=== PATIENT | male | born 1950 | race Caucasian/White ===

== ENCOUNTER 2018-03-18 06:04 | Day surgery (SDC) | payer MEDICARE, BC ==
[2018-03-18] MEDS ORDERED: Dextrose 5%-Lactated Ringers 1,000 ML IV SCH (06:30)
[2018-03-18] MEDS ORDERED: Midazolam 1 MG/ML 2 ML SDV ONE (07:04)
[2018-03-18] MEDS ORDERED: fentaNYL 100 MCG/2 ML SDV ONE (07:04)
[2018-03-18] MEDS ORDERED: Propofol 200 MG/20 ML SDV ONE (07:05)
--- NOTE | 2018-03-18 08:46 | CR ---
Abdomen 2V AP Flat Upright CLINICAL HISTORY: 2 view FINDINGS: There is moderate gaseous distention of small bowel and colon. The gas pattern is nonspecif ic. No free air is identified. IMPRESSION: Moderate gaseous distention of colon and small bowel. Patient is status post recent col onoscopy
[2018-03-18 10:45] VITALS: BP 121/70
--- NOTE | 2018-03-19 15:05 | OR ---
DATE OF PROCEDURE: 03/18/2018 PREOPERATIVE DIAGNOSIS: History of colon polyps. POSTOPERATIVE DIAGNOSES: 1. Recurrent colon polyp at 45 cm from the anal verge (mid sigmoid colon). 2. Uncomplicated left colonic diverticulosis. OPERATIVE PROCEDURE: Flexible colonoscopy with: 1. Polypectomy by snare technique (55433). 2. Injection of Livier ink to [place] location of polypectomy ([id number]). ANESTHESIA: IV sedation. INDICATION FOR PROCEDURE: The patient is two years status post a full colonoscopy, during which tubular adenoma was removed from the hepatic flexure of the colon. Plan is to proceed with a followup colonoscopy with biopsies and/or polypectomy as indicated. Potential risks including bleeding and perforation were discussed, and the patient wishes to proceed. DETAILS OF PROCEDURE: The patient was taken to the operating room and placed in the left lateral decubitus position. IV sedation was administered, after which the initial digital rectal exam was performed and was unremarkable. Colonoscope was then passed into the rectum with retroflexion revealing uncomplicated hemorrhoidal columns. The scope was then passed up to the level of the cecum. The prep was quite good with only being a small amount of liquid stool present. The only abnormalities noted were that of some uncomplicated left colonic diverticulosis. A small polyp measuring around 3-4 mm was identified at 45 cm, which would correspond to the mid sigmoid colon. This was encircled at its base with the snare and cauterized and good hemostasis was noted and the polyp was removed with some fragmentation of polyp as it passed through the suction lumen of the colonoscope. As there was some uncertainty in terms of the exact location of this anatomically, 4 mL of Livier ink was injected into the mucosa of the colon adjacent polypectomy site to aid in identificaiton of the correct level of resection, should the polyp come back being malignant. At that point, no further problems noted. The scope was withdrawn with the above findings reconfirmed, and the patient was taken to the recovery room in satisfactory condition. 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 Apart from that, there were no other complications. Kofi Rodarte MD /[id number]
== END 2018-03-18 11:15 | disposition home or self-care (01) ==
LOC: JP.SDS 06:04
PROVIDERS: ATTEND Surgery
DX: D12.5 Benign neoplasm of sigmoid colon (principal); K57.30 Diverticulosis of large intestine without perforation or abscess without bleeding; E03.9 Hypothyroidism, unspecified; K21.9 Gastro-esophageal reflux disease without esophagitis; Z86.010 Personal history of colon polyps
CPT/HCPCS: 45381; 45385; 74019; J2250; J2704; J3010; J7042

== ENCOUNTER 2020-03-21 07:43 | Day surgery (SDC) | payer MEDICARE, BC ==
[~2020-03-21 07:43] MED LIST: Midazolam 1 MG/ML 2 ML SDV ONE; Propofol 200 MG/20 ML SDV ONE; fentaNYL 100 MCG/2 ML SDV ONE
[2020-03-21] MEDS: Dextrose 5%-Lactated Ringers 1,000 ML IV SCH (08:30)
[2020-03-21] MEDS ORDERED: Glycopyrrolate 0.2 MG/ML 2 ML SDV ONE (10:11)
[2020-03-21 11:00] VITALS: PULSE 53
[2020-03-21 11:19] VITALS: BP 125/82
--- NOTE | 2020-03-25 13:32 | OR ---
DATE OF PROCEDURE: 03/21/2020 SURGEON: Kofi Rodarte MD PREOPERATIVE DIAGNOSIS: History of colon polyps. POSTOPERATIVE DIAGNOSES: 1. Extensive left colonic diverticulosis. 2. No recurrent polyps. OPERATIVE PROCEDURE: Flexible colonoscopy. ANESTHESIA: IV sedation. INDICATIONS FOR PROCEDURE: A 69-year-old male presenting for followup colonoscopy, has history of colon polyps, and the plan is to proceed with colonoscopy with biopsies and/or polypectomy as indicated. Potential risks including bleeding and perforation were discussed, and the patient wishes to proceed. DETAILS OF PROCEDURE: The patient was taken to the operating room and placed in a left lateral decubitus position. IV sedation was administered, after which the initial digital rectal exam was performed and was unremarkable. Colonoscope was then passed into the rectum with retroflexion revealing uncomplicated hemorrhoidal columns. Scope was then eventually passed to the level of the cecum. Prep was fairly good with there only a small amount of liquid stool and some scattered solid stool present. The patient had a quite extensive but otherwise uncomplicated left colonic diverticulosis. There are no areas of colitis and no additional polyps or signs of neoplasia were seen. Scope was then withdrawn, the above findings were reconfirmed, and the procedure was then concluded. The patient was taken to the recovery room in satisfactory condition. Recommendation would be to repeat the colonoscopy in 5 years given personal history of colon polyps. Kofi Rodarte MD /[id number]
== END 2020-03-21 11:32 | disposition home or self-care (01) ==
LOC: JP.SDS 07:43
PROVIDERS: ATTEND Surgery
DX: Z12.11 Encounter for screening for malignant neoplasm of colon (principal); K57.30 Diverticulosis of large intestine without perforation or abscess without bleeding; K64.9 Unspecified hemorrhoids; Z86.010 Personal history of colon polyps
CPT/HCPCS: G0105; J2250; J2704; J3010; J3490; J7121